=== PATIENT | female | born 2000 | race Caucasian/White ===

== ENCOUNTER 2021-03-26 09:36 | Emergency (ER) | payer SELFPAY ==
[~2021-03-26] VITALS: Ht 165.1 cm; Wt 60.0 kg
[2021-03-26] MEDS ORDERED: DEXAMETHASONE 4MG/ML 1ML VIAL IM ONE (10:45)
[2021-03-26] MEDS ORDERED: KETOROLAC 60MG/2ML VIAL IM ONE (10:45)
[2021-03-26] MEDS ORDERED: PENICILLIN G BENZATHINE 1,200,000 UNITS/2ML SYR IM ONE (10:45)
[2021-03-26 11:23] VITALS: BP 130/69
== END 2021-03-26 12:13 | disposition home or self-care (01) ==
LOC: ER 09:36
DX: J03.90 Acute tonsillitis, unspecified (principal)
CPT/HCPCS: 81025; 96372; 99284; J0561; J1100; J1885; Z7610